=== PATIENT | female | born 1935 | race African-American/Black ===

== ENCOUNTER 2017-05-20 07:11 | Inpatient (IN) | payer OTHER, MEDICAID ==
[~2017-05-20] VITALS: Ht 162.6 cm; Wt 45.4 kg
[~2017-05-20 07:11] MED LIST: ASPI-1158 PO; METF500T4 PO
[2017-05-20 08:25] LABS: BASOPHILS % 0.6 % (0.0-2.0); EOSINOPHILS % 0.1 % (0.0-5.0); HEMATOCRIT. 30.5 % (36.0-48.0); HEMOGLOBIN. 9.8 g/dL (12.0-16.0); LYMPHOCYTES % 17.8 % (20.0-50.0); MEAN CORPUSCULAR HEMOGLOBIN 27.7 pg (28.0-32.0); MEAN CORPUSCULAR VOLUME 86.6 fL (81.0-99.0); MEAN PLATELET VOLUME 7.3 fl (7.4-10.4); MONOCYTES % 7.9 % (2.0-8.0); NEUTROPHILS % 73.6 % (40.0-76.0); PLATELET 250 x1000/uL (130-400); RED BLOOD CELL COUNT 3.53 mill/uL (4.2-5.4); RED CELL DISTRIBUTION WIDTH 16.2 % (11.6-14.6)
[2017-05-20 08:35] LABS: CARBON DIOXIDE 22 mEq/L (21-32); CHLORIDE 115 mEq/L (98-107)
[2017-05-20 08:41] LABS: TROPONIN I < 0.02 ng/mL (0.00-0.04)
[2017-05-20] MEDS ORDERED: HYDROCODONE/ACETAMINOPHEN 5/325MG TABLET PO PRN (12:15)
[2017-05-20] MEDS ORDERED: IPRATROPIUM/ALBUTEROL 0.5-3(2.5)MG/3ML NEB INH PRN (12:15)
[2017-05-20] MEDS ORDERED: ONDANSETRON HCL 4MG/2ML VIAL IV PRN (12:15)
[2017-05-20] MEDS ORDERED: ACETAMINOPHEN 325MG TABLET PO PRN (12:15)
[2017-05-20] MEDS ORDERED: CLONIDINE 0.1MG TABLET PO PRN (12:15)
[2017-05-20] MEDS ORDERED: HYDRALAZINE 20MG/ML VIAL IV PRN (16:00)
[2017-05-20] MEDS: AMLODIPINE 2.5MG TABLET PO SCH ×2 (17:25→21:01)
[2017-05-20] MEDS: CLONIDINE 0.2MG TABLET PO PRN (21:02)
[2017-05-21 06:17] LABS: BASOPHILS % 0.6 % (0.0-2.0); HEMATOCRIT. 26.9 % (36.0-48.0); HEMOGLOBIN. 8.8 g/dL (12.0-16.0); LYMPHOCYTES % 22.4 % (20.0-50.0); MEAN CORPUSCULAR HEMOGLOBIN 27.5 pg (28.0-32.0); MEAN CORPUSCULAR VOLUME 84.2 fL (81.0-99.0); MEAN PLATELET VOLUME 6.9 fl (7.4-10.4); MONOCYTES % 6.2 % (2.0-8.0); NEUTROPHILS % 69.8 % (40.0-76.0); PLATELET 209 x1000/uL (130-400); RED BLOOD CELL COUNT 3.19 mill/uL (4.2-5.4); RED CELL DISTRIBUTION WIDTH 15.6 % (11.6-14.6)
[2017-05-21 07:01] LABS: CARBON DIOXIDE 21 mEq/L (21-32); CHLORIDE 113 mEq/L (98-107); HDL CHOLESTEROL 49 mg/dL (40-59); LDL CHOLESTEROL 102 mg/dL (5-100)
[2017-05-21] MEDS ORDERED: HEPARIN 5000 UNITS/ML VIAL IV PRN ×2 (08:00)
[2017-05-21] MEDS ORDERED: HEPARIN 25,000 UNITS PREMIX 500 ML IV PRN (08:00)
[2017-05-21] MEDS ORDERED: DEXTROSE 50% WATER 50ML SYRINGE IV PRN ×2 (08:30→12:45)
[2017-05-21 08:58] LABS: INR 1.1; PARTIAL THROMBOPLASTIN TIME 26.2 sec (24.0-34.0); PROTHROMBIN TIME 11.1 sec
[2017-05-21] MEDS ORDERED: INSULIN LISPRO 100 UNITS/ML SUBCUT SCH (09:00)
[2017-05-21] MEDS: AMLODIPINE 2.5MG TABLET PO SCH ×2 (09:09→20:51)
[2017-05-21] MEDS: LEVOTHYROXINE SODIUM 75MCG TABLET PO SCH (09:58)
[2017-05-21] MEDS ORDERED: HEPARIN 5000 UNITS/ML VIAL IV SCH (10:00)
[2017-05-21] MEDS: HEPARIN 25,000 UNITS PREMIX 500 ML IV PRN (11:24)
[2017-05-21] MEDS: BLOOD SUGAR DIAGNOSTIC STRIP TEST SCH ×3 (12:39→21:00)
[2017-05-21] MEDS: INSULIN LISPRO 100 UNITS/ML SUBCUT SCH ×3 (12:56→21:00)
[2017-05-21 16:05] LABS: BG BASE EXCESS -3.2 mmol/L (-2.0-2.0); BG CARBOXYHEMOGLOBIN 0.6 % (0.5-1.5); BG DEOXYHEMOGLOBIN 5.4 % (0.0-5.0); BG FRACTION INSPIRED OXYGEN 21; BG HCO3 ACT 20.7 mmol/L (22.0-26.0); BG METHEMOGLOBIN 0.3 % (0.0-1.5); BG OXYGEN SATURATION 94.6 % (92.0-98.5); BG OXYHEMOGLOBIN 93.7 % (94.0-97.0); BG PCO2 32.9 mmHg (35.0-45.0); BG PH 7.416 (7.350-7.450); BG SAMPLE SITE RIGHT BRACHIAL; BG TOTAL HEMOGLOBIN 10.3 g/dL (12.0-18.0); BG VENT MODE ROOM AIR
[2017-05-21] MEDS ORDERED: BLOOD SUGAR DIAGNOSTIC STRIP TEST SCH (17:10)
[2017-05-22] MEDS: LEVOTHYROXINE SODIUM 75MCG TABLET PO SCH (06:38)
[2017-05-22] MEDS: INSULIN LISPRO 100 UNITS/ML SUBCUT SCH ×4 (06:43→20:41)
[2017-05-22] MEDS: BLOOD SUGAR DIAGNOSTIC STRIP TEST SCH ×4 (06:43→20:42)
[2017-05-22] MEDS: AMLODIPINE 2.5MG TABLET PO SCH ×2 (08:26→20:35)
[2017-05-22] MEDS: HEPARIN 25,000 UNITS PREMIX 500 ML IV PRN (08:30)
[2017-05-22] MEDS ORDERED: POTASSIUM CHLORIDE 20MEQ TABLET SR PO SCH (10:30)
[2017-05-22 11:58] LABS: HEMATOCRIT 28.7 % (36.0-48.0); HEMOGLOBIN 9.3 g/dL (12.0-16.0); MEAN CORPUSCULAR HEMOGLOBIN 27.3 pg (28.0-32.0); MEAN CORPUSCULAR VOLUME 84.5 fL (81.0-99.0); PLATELET 234 x1000/uL (130-400); RED CELL DISTRIBUTION WIDTH 15.9 % (11.6-14.6)
[2017-05-22] MEDS ORDERED: MAGNESIUM 2 G PREMIX 50 ML IV SCH (12:00)
[2017-05-22] MEDS: ENOXAPARIN 60MG/0.6ML SYR SUBCUT SCH (12:03)
[2017-05-23] MEDS: LEVOTHYROXINE SODIUM 75MCG TABLET PO SCH (06:26)
[2017-05-23] MEDS: BLOOD SUGAR DIAGNOSTIC STRIP TEST SCH ×4 (06:28→21:00)
[2017-05-23] MEDS: INSULIN LISPRO 100 UNITS/ML SUBCUT SCH ×4 (06:46→22:25)
[2017-05-23 07:37] LABS: BASOPHILS % 0.3 % (0.0-2.0); EOSINOPHILS % 0.7 % (0.0-5.0); HEMATOCRIT. 28.9 % (36.0-48.0); HEMOGLOBIN. 9.4 g/dL (12.0-16.0); LYMPHOCYTES % 20.1 % (20.0-50.0); MEAN CORPUSCULAR HEMOGLOBIN 27.3 pg (28.0-32.0); MEAN CORPUSCULAR VOLUME 83.6 fL (81.0-99.0); MEAN PLATELET VOLUME 7.4 fl (7.4-10.4); MONOCYTES % 9.6 % (2.0-8.0); NEUTROPHILS % 69.3 % (40.0-76.0); PLATELET 224 x1000/uL (130-400); RED BLOOD CELL COUNT 3.45 mill/uL (4.2-5.4); RED CELL DISTRIBUTION WIDTH 15.6 % (11.6-14.6)
[2017-05-23 08:38] LABS: CARBON DIOXIDE 25 mEq/L (21-32); CHLORIDE 109 mEq/L (98-107)
[2017-05-23] MEDS: AMLODIPINE 2.5MG TABLET PO SCH ×2 (08:57→21:00)
[2017-05-23] MEDS: ENOXAPARIN 60MG/0.6ML SYR SUBCUT SCH (08:57)
[2017-05-23 09:06] LABS: ANTI-NUCLEAR ANTIBODIES DIRECT Negative (Negative); COMPLEMENT C3 89 mg/dL (82-167)
[2017-05-23 09:31] LABS: TOTAL IRON BINDING CAPACITY 180 ug/dL (250-450)
[2017-05-23 10:20] LABS: FOLIC ACID (FOLATE) SERUM 2.8 ng/mL (>5.38)
[2017-05-23] MEDS: CEFTRIAXONE 1 G PREMIX 50 ML IV SCH (17:23)
[2017-05-23 17:32] LABS: CLARITY URINE CLOUDY (CLEAR); COLOR URINE YELLOW (YELLOW); KETONES URINE NEGATIVE (NEGATIVE); LEUKOCYTE ESTERASE URINE 3+ (NEGATIVE); NITRITE URINE NEGATIVE (NEGATIVE); OCCULT BLOOD URINE 1+ (NEGATIVE); PH URINE 6.5 (4.5-8.0); PROTEIN URINE 1+ (NEGATIVE); UROBILINOGEN URINE 0.2 E.U./dL (0.2-1.0)
[2017-05-24 06:05] LABS: BASOPHILS % 0.3 % (0.0-2.0); EOSINOPHILS % 0.7 % (0.0-5.0); HEMOGLOBIN. 9.1 g/dL (12.0-16.0); LYMPHOCYTES % 21.6 % (20.0-50.0); MEAN CORPUSCULAR HEMOGLOBIN 27.4 pg (28.0-32.0); MEAN CORPUSCULAR VOLUME 84.5 fL (81.0-99.0); MEAN PLATELET VOLUME 7.1 fl (7.4-10.4); MONOCYTES % 9.3 % (2.0-8.0); NEUTROPHILS % 68.1 % (40.0-76.0); PLATELET 222 x1000/uL (130-400); RED BLOOD CELL COUNT 3.31 mill/uL (4.2-5.4); RED CELL DISTRIBUTION WIDTH 16.1 % (11.6-14.6)
[2017-05-24] MEDS: BLOOD SUGAR DIAGNOSTIC STRIP TEST SCH ×4 (06:51→20:28)
[2017-05-24] MEDS: LEVOTHYROXINE SODIUM 75MCG TABLET PO SCH (06:51)
[2017-05-24] MEDS: INSULIN LISPRO 100 UNITS/ML SUBCUT SCH ×4 (07:03→21:41)
[2017-05-24] MEDS: ENOXAPARIN 60MG/0.6ML SYR SUBCUT SCH (08:35)
[2017-05-24] MEDS: CLONIDINE 0.2MG TABLET PO PRN (08:38)
[2017-05-24] MEDS: AMLODIPINE 2.5MG TABLET PO SCH ×2 (08:38→20:28)
[2017-05-24] MEDS ORDERED: SODIUM POLYSTYRENE SULFONATE 15 G/60 ML BOT PO SCH (11:00)
[2017-05-24 12:21] LABS: ANTI-MYELOPEROXIDASE AB < 9.0 U/mL (0.0-9.0); ANTI-PROTEINASE 3 ABS < 3.5 U/mL (0.0-3.5)
[2017-05-24] MEDS: HYDRALAZINE HCL 25MG TABLET PO SCH ×2 (13:00→22:00)
[2017-05-24] MEDS: CLONIDINE 0.1MG TABLET PO PRN (17:14)
[2017-05-24] MEDS: FOLIC ACID 1MG TABLET PO SCH (17:14)
[2017-05-24] MEDS: CEFTRIAXONE 1 G PREMIX 50 ML IV SCH (17:14)
[2017-05-25] MEDS: HYDRALAZINE HCL 25MG TABLET PO SCH ×3 (05:40→21:33)
[2017-05-25] MEDS: BLOOD SUGAR DIAGNOSTIC STRIP TEST SCH ×4 (05:53→21:33)
[2017-05-25] MEDS: INSULIN LISPRO 100 UNITS/ML SUBCUT SCH ×4 (05:54→21:00)
[2017-05-25 08:20] LABS: BASOPHILS % 0.8 % (0.0-2.0); EOSINOPHILS % 0.9 % (0.0-5.0); HEMATOCRIT. 24.4 % (36.0-48.0); HEMOGLOBIN. 8.1 g/dL (12.0-16.0); MEAN CORPUSCULAR HEMOGLOBIN 27.7 pg (28.0-32.0); MEAN CORPUSCULAR VOLUME 83.4 fL (81.0-99.0); MONOCYTES % 8.3 % (2.0-8.0); PLATELET 204 x1000/uL (130-400); RED BLOOD CELL COUNT 2.93 mill/uL (4.2-5.4); RED CELL DISTRIBUTION WIDTH 15.8 % (11.6-14.6)
[2017-05-25] MEDS: LEVOTHYROXINE SODIUM 75MCG TABLET PO SCH (08:29)
[2017-05-25] MEDS: ENOXAPARIN 60MG/0.6ML SYR SUBCUT SCH ×2 (08:29→08:35)
[2017-05-25] MEDS: AMLODIPINE 2.5MG TABLET PO SCH ×2 (08:29→21:33)
[2017-05-25 08:48] LABS: PHOSPHORUS 3.1 mg/dL (2.5-4.9)
[2017-05-25] MEDS: CEFTRIAXONE 1 G PREMIX 50 ML IV SCH (17:14)
[2017-05-25] MEDS: FOLIC ACID 1MG TABLET PO SCH (17:14)
[2017-05-25] MEDS ORDERED: WARFARIN SODIUM 5MG TABLET PO NR (18:00)
[2017-05-26] MEDS: HYDRALAZINE HCL 25MG TABLET PO SCH ×3 (06:14→21:02)
[2017-05-26] MEDS: LEVOTHYROXINE SODIUM 75MCG TABLET PO SCH (06:15)
[2017-05-26] MEDS: BLOOD SUGAR DIAGNOSTIC STRIP TEST SCH ×4 (06:15→20:25)
[2017-05-26 07:04] LABS: INR 0.9; PROTHROMBIN TIME 9.8 sec
[2017-05-26] MEDS: INSULIN LISPRO 100 UNITS/ML SUBCUT SCH ×4 (07:21→21:01)
[2017-05-26 07:36] LABS: HEMATOCRIT. 27.3 % (36.0-48.0); HEMOGLOBIN. 8.9 g/dL (12.0-16.0); MEAN CORPUSCULAR HEMOGLOBIN 27.6 pg (28.0-32.0); MEAN CORPUSCULAR VOLUME 84.4 fL (81.0-99.0); PLATELET 241 x1000/uL (130-400); RED BLOOD CELL COUNT 3.24 mill/uL (4.2-5.4); RED CELL DISTRIBUTION WIDTH 16.1 % (11.6-14.6)
[2017-05-26] MEDS: AMLODIPINE 2.5MG TABLET PO SCH ×2 (08:27→21:02)
[2017-05-26] MEDS: DIPHENHYDRAMINE 50MG/ML VIAL IV PRN (08:28)
[2017-05-26] MEDS: ENOXAPARIN 60MG/0.6ML SYR SUBCUT SCH (08:28)
[2017-05-26 11:31] LABS: PLATELET ESTIMATE NORMAL
[2017-05-26 13:09] LABS: ANTI-CARDIOLIPIN AB IGM < 9 MPL U/mL (0-12)
[2017-05-26] MEDS: FOLIC ACID 1MG TABLET PO SCH (17:04)
[2017-05-26] MEDS: CEFTRIAXONE 1 G PREMIX 50 ML IV SCH (17:04)
[2017-05-26] MEDS ORDERED: WARFARIN SODIUM 5MG TABLET PO NR (18:00)
[2017-05-27] MEDS: BLOOD SUGAR DIAGNOSTIC STRIP TEST SCH ×4 (05:43→21:35)
[2017-05-27] MEDS: INSULIN LISPRO 100 UNITS/ML SUBCUT SCH ×4 (06:13→21:37)
[2017-05-27] MEDS: HYDRALAZINE HCL 25MG TABLET PO SCH ×3 (06:14→21:41)
[2017-05-27] MEDS: LEVOTHYROXINE SODIUM 75MCG TABLET PO SCH (06:14)
[2017-05-27 08:50] LABS: BASOPHILS % 0.6 % (0.0-2.0); EOSINOPHILS % 0.8 % (0.0-5.0); HEMATOCRIT. 29.7 % (36.0-48.0); HEMOGLOBIN. 9.6 g/dL (12.0-16.0); LYMPHOCYTES % 22.2 % (20.0-50.0); MEAN CORPUSCULAR HEMOGLOBIN 27.4 pg (28.0-32.0); MEAN CORPUSCULAR VOLUME 84.8 fL (81.0-99.0); MEAN PLATELET VOLUME 7.8 fl (7.4-10.4); MONOCYTES % 8.2 % (2.0-8.0); NEUTROPHILS % 68.2 % (40.0-76.0); PLATELET 194 x1000/uL (130-400); RED CELL DISTRIBUTION WIDTH 16.3 % (11.6-14.6)
[2017-05-27 08:58] LABS: PROTHROMBIN TIME 10.6 sec
[2017-05-27] MEDS: ENOXAPARIN 60MG/0.6ML SYR SUBCUT SCH (09:30)
[2017-05-27] MEDS: AMLODIPINE 5MG TABLET PO SCH ×2 (09:37→21:36)
[2017-05-27 11:18] LABS: ATYPICAL P-ANCA <1:20 titer (Neg:<1:20); CYTOPLASMIC C-ANCA <1:20 titer (Neg:<1:20); PERINUCLEAR P-ANCA <1:20 titer (Neg:<1:20)
[2017-05-27] MEDS: CEFTRIAXONE 1 G PREMIX 50 ML IV SCH (17:35)
[2017-05-27] MEDS: FOLIC ACID 1MG TABLET PO SCH (17:41)
[2017-05-27] MEDS ORDERED: WARFARIN SODIUM 3MG TABLET PO SCH (18:00)
[2017-05-28] MEDS: HYDRALAZINE HCL 25MG TABLET PO SCH ×3 (06:22→22:59)
[2017-05-28] MEDS: LEVOTHYROXINE SODIUM 75MCG TABLET PO SCH (06:22)
[2017-05-28] MEDS: BLOOD SUGAR DIAGNOSTIC STRIP TEST SCH ×4 (06:24→21:43)
[2017-05-28] MEDS: INSULIN LISPRO 100 UNITS/ML SUBCUT SCH ×5 (06:25→21:50)
[2017-05-28 07:33] LABS: INR 1.1; PROTHROMBIN TIME 11.6 sec
[2017-05-28] MEDS: AMLODIPINE 5MG TABLET PO SCH ×2 (08:09→21:38)
[2017-05-28] MEDS: ENOXAPARIN 60MG/0.6ML SYR SUBCUT SCH (08:10)
[2017-05-28 08:27] LABS: BASOPHILS % 0.6 % (0.0-2.0); HEMATOCRIT. 26.1 % (36.0-48.0); HEMOGLOBIN. 8.6 g/dL (12.0-16.0); LYMPHOCYTES % 21.5 % (20.0-50.0); MEAN CORPUSCULAR HEMOGLOBIN 27.8 pg (28.0-32.0); MEAN CORPUSCULAR VOLUME 84.6 fL (81.0-99.0); MEAN PLATELET VOLUME 7.1 fl (7.4-10.4); MONOCYTES % 10.2 % (2.0-8.0); NEUTROPHILS % 66.7 % (40.0-76.0); PLATELET 245 x1000/uL (130-400); RED BLOOD CELL COUNT 3.09 mill/uL (4.2-5.4); RED CELL DISTRIBUTION WIDTH 16.3 % (11.6-14.6)
[2017-05-28 14:19] LABS: HGB A 98.2 % (94.0-98.0); HGB A2 1.8 % (0.7-3.1); HGB SOLUBILITY Negative (Negative)
[2017-05-28] MEDS: CEFTRIAXONE 1 G PREMIX 50 ML IV SCH (15:48)
[2017-05-28] MEDS ORDERED: WARFARIN SODIUM 3MG TABLET PO SCH (18:00)
[2017-05-28] MEDS: FOLIC ACID 1MG TABLET PO SCH (18:57)
[2017-05-29] MEDS: HYDRALAZINE HCL 25MG TABLET PO SCH ×3 (05:20→21:40)
[2017-05-29] MEDS: BLOOD SUGAR DIAGNOSTIC STRIP TEST SCH ×4 (06:24→20:47)
[2017-05-29] MEDS: INSULIN LISPRO 100 UNITS/ML SUBCUT SCH ×4 (06:24→20:53)
[2017-05-29] MEDS: LEVOTHYROXINE SODIUM 75MCG TABLET PO SCH (06:48)
[2017-05-29 07:03] LABS: INR 1.2; PROTHROMBIN TIME 12.8 sec
[2017-05-29 07:47] LABS: BASOPHILS % 0.3 % (0.0-2.0); EOSINOPHILS % 1.2 % (0.0-5.0); HEMATOCRIT. 27.6 % (36.0-48.0); HEMOGLOBIN. 9.1 g/dL (12.0-16.0); LYMPHOCYTES % 23.1 % (20.0-50.0); MEAN CORPUSCULAR VOLUME 85.1 fL (81.0-99.0); MEAN PLATELET VOLUME 6.8 fl (7.4-10.4); MONOCYTES % 9.4 % (2.0-8.0); PLATELET 251 x1000/uL (130-400); RED BLOOD CELL COUNT 3.24 mill/uL (4.2-5.4); RED CELL DISTRIBUTION WIDTH 16.7 % (11.6-14.6)
[2017-05-29] MEDS: AMLODIPINE 5MG TABLET PO SCH ×2 (08:44→20:46)
[2017-05-29] MEDS: ENOXAPARIN 60MG/0.6ML SYR SUBCUT SCH (08:45)
[2017-05-29] MEDS: CEFTRIAXONE 1 G PREMIX 50 ML IV SCH (15:08)
[2017-05-29] MEDS: FOLIC ACID 1MG TABLET PO SCH (16:52)
[2017-05-29] MEDS ORDERED: WARFARIN SODIUM 3MG TABLET PO SCH (18:00)
[2017-05-29] MEDS: CLONIDINE 0.1MG TABLET PO PRN (23:15)
[2017-05-30 05:46] LABS: INR 1.4; PROTHROMBIN TIME 14.7 sec
[2017-05-30] MEDS: LEVOTHYROXINE SODIUM 75MCG TABLET PO SCH (06:22)
[2017-05-30] MEDS: BLOOD SUGAR DIAGNOSTIC STRIP TEST SCH ×4 (06:23→21:32)
[2017-05-30] MEDS: HYDRALAZINE HCL 25MG TABLET PO SCH ×3 (06:23→22:51)
[2017-05-30] MEDS: INSULIN LISPRO 100 UNITS/ML SUBCUT SCH ×4 (06:36→21:00)
[2017-05-30] MEDS: ENOXAPARIN 60MG/0.6ML SYR SUBCUT SCH (08:25)
[2017-05-30] MEDS: AMLODIPINE 5MG TABLET PO SCH ×2 (08:25→21:00)
[2017-05-30] MEDS: CEFTRIAXONE 1 G PREMIX 50 ML IV SCH (15:14)
[2017-05-30] MEDS: FOLIC ACID 1MG TABLET PO SCH (17:17)
[2017-05-30] MEDS ORDERED: WARFARIN SODIUM 3MG TABLET PO SCH (18:00)
[2017-05-31] MEDS: LEVOTHYROXINE SODIUM 75MCG TABLET PO SCH (06:19)
[2017-05-31] MEDS: BLOOD SUGAR DIAGNOSTIC STRIP TEST SCH ×4 (06:20→20:36)
[2017-05-31] MEDS: HYDRALAZINE HCL 25MG TABLET PO SCH ×3 (06:20→20:51)
[2017-05-31] MEDS: INSULIN LISPRO 100 UNITS/ML SUBCUT SCH ×4 (06:49→20:53)
[2017-05-31 07:02] LABS: BASOPHILS % 0.8 % (0.0-2.0); EOSINOPHILS % 1.2 % (0.0-5.0); HEMATOCRIT. 27.1 % (36.0-48.0); HEMOGLOBIN. 8.8 g/dL (12.0-16.0); LYMPHOCYTES % 22.8 % (20.0-50.0); MEAN CORPUSCULAR HEMOGLOBIN 27.5 pg (28.0-32.0); MEAN CORPUSCULAR VOLUME 84.8 fL (81.0-99.0); MEAN PLATELET VOLUME 6.5 fl (7.4-10.4); MONOCYTES % 8.8 % (2.0-8.0); NEUTROPHILS % 66.4 % (40.0-76.0); PLATELET 240 x1000/uL (130-400); RED BLOOD CELL COUNT 3.19 mill/uL (4.2-5.4); RED CELL DISTRIBUTION WIDTH 17.1 % (11.6-14.6)
[2017-05-31 07:03] LABS: INR 1.5
[2017-05-31 07:11] LABS: CLARITY URINE CLEAR (CLEAR); COLOR URINE YELLOW (YELLOW); KETONES URINE NEGATIVE (NEGATIVE); LEUKOCYTE ESTERASE URINE NEGATIVE (NEGATIVE); NITRITE URINE NEGATIVE (NEGATIVE); OCCULT BLOOD URINE NEGATIVE (NEGATIVE); PROTEIN URINE 1+ (NEGATIVE); SPECIFIC GRAVITY URINE 1.011 (1.005-1.030); UROBILINOGEN URINE 0.2 E.U./dL (0.2-1.0)
[2017-05-31] MEDS: ENOXAPARIN 60MG/0.6ML SYR SUBCUT SCH (09:05)
[2017-05-31] MEDS: AMLODIPINE 5MG TABLET PO SCH ×2 (09:05→20:50)
[2017-05-31] MEDS: FOLIC ACID 1MG TABLET PO SCH (17:45)
[2017-05-31] MEDS: WARFARIN SODIUM 7.5MG TABLET PO NR ×2 (17:45→20:51)
[2017-06-01 05:23] LABS: INR 1.6
[2017-06-01] MEDS: BLOOD SUGAR DIAGNOSTIC STRIP TEST SCH ×4 (06:12→21:24)
[2017-06-01] MEDS: HYDRALAZINE HCL 25MG TABLET PO SCH ×3 (06:19→21:25)
[2017-06-01] MEDS: LEVOTHYROXINE SODIUM 75MCG TABLET PO SCH (06:19)
[2017-06-01] MEDS: INSULIN LISPRO 100 UNITS/ML SUBCUT SCH ×4 (06:21→21:00)
[2017-06-01] MEDS: ENOXAPARIN 60MG/0.6ML SYR SUBCUT SCH (09:16)
[2017-06-01] MEDS: AMLODIPINE 5MG TABLET PO SCH ×2 (09:17→21:26)
[2017-06-01] MEDS: FOLIC ACID 1MG TABLET PO SCH (17:29)
[2017-06-01] MEDS ORDERED: WARFARIN SODIUM 7.5MG TABLET PO SCH (18:00)
[2017-06-02] MEDS: BLOOD SUGAR DIAGNOSTIC STRIP TEST SCH ×4 (06:17→20:37)
[2017-06-02] MEDS: HYDRALAZINE HCL 25MG TABLET PO SCH ×3 (06:17→21:40)
[2017-06-02] MEDS: LEVOTHYROXINE SODIUM 75MCG TABLET PO SCH (06:17)
[2017-06-02 07:47] LABS: INR 1.8; PROTHROMBIN TIME 18.6 sec
[2017-06-02 07:54] LABS: BASOPHILS % 0.6 % (0.0-2.0); EOSINOPHILS % 1.4 % (0.0-5.0); HEMATOCRIT. 28.5 % (36.0-48.0); HEMOGLOBIN. 9.3 g/dL (12.0-16.0); LYMPHOCYTES % 25.4 % (20.0-50.0); MEAN CORPUSCULAR HEMOGLOBIN 27.3 pg (28.0-32.0); MEAN CORPUSCULAR VOLUME 84.2 fL (81.0-99.0); MEAN PLATELET VOLUME 6.7 fl (7.4-10.4); MONOCYTES % 8.3 % (2.0-8.0); NEUTROPHILS % 64.3 % (40.0-76.0); PLATELET 254 x1000/uL (130-400); RED BLOOD CELL COUNT 3.39 mill/uL (4.2-5.4); RED CELL DISTRIBUTION WIDTH 17.2 % (11.6-14.6)
[2017-06-02] MEDS: AMLODIPINE 5MG TABLET PO SCH ×2 (09:38→21:40)
[2017-06-02] MEDS: ENOXAPARIN 60MG/0.6ML SYR SUBCUT SCH (09:38)
[2017-06-02] MEDS: INSULIN LISPRO 100 UNITS/ML SUBCUT SCH ×4 (12:30→20:37)
[2017-06-02] MEDS: FOLIC ACID 1MG TABLET PO SCH (17:53)
[2017-06-02] MEDS ORDERED: WARFARIN SODIUM 7.5MG TABLET PO SCH (18:00)
[2017-06-03] MEDS: HYDRALAZINE HCL 25MG TABLET PO SCH ×4 (06:00→21:59)
[2017-06-03] MEDS: LEVOTHYROXINE SODIUM 75MCG TABLET PO SCH ×2 (06:23→06:28)
[2017-06-03] MEDS: BLOOD SUGAR DIAGNOSTIC STRIP TEST SCH ×4 (06:23→20:39)
[2017-06-03] MEDS: INSULIN LISPRO 100 UNITS/ML SUBCUT SCH ×4 (06:27→20:42)
[2017-06-03 06:35] LABS: BASOPHILS % 0.7 % (0.0-2.0); EOSINOPHILS % 1.1 % (0.0-5.0); HEMATOCRIT. 26.7 % (36.0-48.0); HEMOGLOBIN. 8.7 g/dL (12.0-16.0); LYMPHOCYTES % 25.6 % (20.0-50.0); MEAN CORPUSCULAR HEMOGLOBIN 27.6 pg (28.0-32.0); MEAN CORPUSCULAR VOLUME 84.7 fL (81.0-99.0); MEAN PLATELET VOLUME 6.7 fl (7.4-10.4); MONOCYTES % 7.9 % (2.0-8.0); NEUTROPHILS % 64.7 % (40.0-76.0); PLATELET 241 x1000/uL (130-400); RED BLOOD CELL COUNT 3.15 mill/uL (4.2-5.4)
[2017-06-03 06:43] LABS: INR 2.1; PROTHROMBIN TIME 21.7 sec
[2017-06-03] MEDS: ENOXAPARIN 60MG/0.6ML SYR SUBCUT SCH (08:37)
[2017-06-03] MEDS: AMLODIPINE 5MG TABLET PO SCH ×2 (08:38→20:39)
[2017-06-03] MEDS ORDERED: WARFARIN SODIUM 7.5MG TABLET PO NR (18:00)
[2017-06-03] MEDS: FOLIC ACID 1MG TABLET PO SCH (18:05)
[2017-06-04] MEDS: LEVOTHYROXINE SODIUM 75MCG TABLET PO SCH (06:11)
[2017-06-04] MEDS: BLOOD SUGAR DIAGNOSTIC STRIP TEST SCH ×4 (06:11→20:46)
[2017-06-04] MEDS: HYDRALAZINE HCL 25MG TABLET PO SCH ×3 (06:11→22:00)
[2017-06-04] MEDS: INSULIN LISPRO 100 UNITS/ML SUBCUT SCH ×4 (06:19→20:52)
[2017-06-04 06:29] LABS: INR 2.3; PROTHROMBIN TIME 23.8 sec
[2017-06-04] MEDS: CLONIDINE 0.1MG TABLET PO PRN (10:07)
[2017-06-04] MEDS: AMLODIPINE 5MG TABLET PO SCH ×2 (10:07→20:46)
[2017-06-04] MEDS: ENOXAPARIN 60MG/0.6ML SYR SUBCUT SCH (10:08)
[2017-06-04] MEDS: DIPHENHYDRAMINE 50MG/ML VIAL IV PRN (10:10)
[2017-06-04 11:48] LABS: BASOPHILS % 0.9 % (0.0-2.0); EOSINOPHILS % 1.2 % (0.0-5.0); HEMATOCRIT. 27.8 % (36.0-48.0); LYMPHOCYTES % 22.6 % (20.0-50.0); MEAN CORPUSCULAR HEMOGLOBIN 27.6 pg (28.0-32.0); MEAN CORPUSCULAR VOLUME 85.6 fL (81.0-99.0); MEAN PLATELET VOLUME 7.2 fl (7.4-10.4); MONOCYTES % 7.7 % (2.0-8.0); NEUTROPHILS % 67.6 % (40.0-76.0); PLATELET 246 x1000/uL (130-400); RED BLOOD CELL COUNT 3.25 mill/uL (4.2-5.4); RED CELL DISTRIBUTION WIDTH 17.7 % (11.6-14.6)
[2017-06-04] MEDS: FOLIC ACID 1MG TABLET PO SCH (17:23)
[2017-06-04] MEDS ORDERED: WARFARIN SODIUM 7.5MG TABLET PO SCH (18:00)
[2017-06-05] MEDS: HYDRALAZINE HCL 25MG TABLET PO SCH ×2 (06:39→13:08)
[2017-06-05] MEDS: LEVOTHYROXINE SODIUM 75MCG TABLET PO SCH (06:39)
[2017-06-05] MEDS: BLOOD SUGAR DIAGNOSTIC STRIP TEST SCH ×2 (06:39→12:46)
[2017-06-05 06:42] LABS: INR 2.5; PROTHROMBIN TIME 25.7 sec
[2017-06-05] MEDS: INSULIN LISPRO 100 UNITS/ML SUBCUT SCH ×2 (06:43→12:40)
[2017-06-05 07:37] LABS: BASOPHILS % 0.8 % (0.0-2.0); EOSINOPHILS % 1.2 % (0.0-5.0); HEMATOCRIT. 26.3 % (36.0-48.0); HEMOGLOBIN. 8.6 g/dL (12.0-16.0); LYMPHOCYTES % 24.6 % (20.0-50.0); MEAN CORPUSCULAR HEMOGLOBIN 28.1 pg (28.0-32.0); MEAN CORPUSCULAR VOLUME 85.5 fL (81.0-99.0); MEAN PLATELET VOLUME 7.4 fl (7.4-10.4); MONOCYTES % 7.4 % (2.0-8.0); PLATELET 245 x1000/uL (130-400); RED BLOOD CELL COUNT 3.07 mill/uL (4.2-5.4); RED CELL DISTRIBUTION WIDTH 17.2 % (11.6-14.6)
[2017-06-05] MEDS: AMLODIPINE 5MG TABLET PO SCH (09:36)
[2017-06-05 12:34] VITALS: BP 142/90
[2017-06-05] MEDS ORDERED: WARFARIN SODIUM 3MG TABLET PO SCH (18:00)
== END 2017-06-05 15:30 | disposition home health service (06) | DRG 70 ==
LOC: ER 07:26 → 8WST 09:25 → ENRESERV 11:39
PROVIDERS: ADMIT Internal Medicine; ATTEND Internal Medicine
DX: G93.40 Encephalopathy, unspecified (principal); I50.33 Acute on chronic diastolic (congestive) heart failure; I26.99 Other pulmonary embolism without acute cor pulmonale; I13.0 Hypertensive heart and chronic kidney disease with heart failure and stage 1 through stage 4 chronic kidney disease, or unspecified chronic kidney disease; I82.412 Acute embolism and thrombosis of left femoral vein; N17.9 Acute kidney failure, unspecified; N18.4 Chronic kidney disease, stage 4 (severe); E87.1 Hypo-osmolality and hyponatremia; E46 Unspecified protein-calorie malnutrition; N39.0 Urinary tract infection, site not specified; Z68.1 Body mass index [BMI] 19.9 or less, adult; E03.9 Hypothyroidism, unspecified; E87.6 Hypokalemia; B96.20 Unspecified Escherichia coli [E. coli] as the cause of diseases classified elsewhere; B96.89 Other specified bacterial agents as the cause of diseases classified elsewhere; Z60.2 Problems related to living alone; D63.8 Anemia in other chronic diseases classified elsewhere; E11.22 Type 2 diabetes mellitus with diabetic chronic kidney disease; E83.42 Hypomagnesemia; I27.2 Other secondary pulmonary hypertension; Z79.84 Long term (current) use of oral hypoglycemic drugs; Z79.82 Long term (current) use of aspirin
CPT/HCPCS: 36415; 36600; 70450; 71010; 76770; 78580; 80048; 80053; 80061; 81001; 81403; 81407; 81479; 82270; 82375; 82607; 82728; 82746; 82805; 82962; 83021; 83036; 83520; 83540; 83550; 83735; 83880; 84100; 84443; 84484; 85007; 85025; 85027; 85044; 85379; 85610; 85651; 85660; 85730; 86038; 86147; 86160; 86256; 87040; 87077; 87086; 87186; 93005; 93306; 93970; 96374; 97116; 97162; 97530; 99285; A6261; C1893; J0360; J0696; J1200; J1644; J1650; J1815; J2405; J3475; J7040; J7050; J7620; A4315

== ENCOUNTER 2017-07-12 07:34 | Inpatient (IN) | payer OTHER, MEDICAID ==
[~2017-07-12] VITALS: Ht 162.6 cm; Wt 78.9 kg
[2017-07-12] MEDS ORDERED: SODIUM CHLORIDE 0.9% 1,000 ML IV ONE (08:00)
[2017-07-12 08:24] LABS: BASOPHILS % 0.6 % (0.0-2.0); EOSINOPHILS % 0.1 % (0.0-5.0); HEMATOCRIT. 35.6 % (36.0-48.0); HEMOGLOBIN. 11.4 g/dL (12.0-16.0); LYMPHOCYTES % 12.6 % (20.0-50.0); MEAN CORPUSCULAR HEMOGLOBIN 27.1 pg (28.0-32.0); MEAN CORPUSCULAR VOLUME 84.5 fL (81.0-99.0); MEAN PLATELET VOLUME 7.2 fl (7.4-10.4); MONOCYTES % 5.1 % (2.0-8.0); NEUTROPHILS % 81.6 % (40.0-76.0); PLATELET 286 x1000/uL (130-400); RED BLOOD CELL COUNT 4.21 mill/uL (4.2-5.4); RED CELL DISTRIBUTION WIDTH 15.9 % (11.6-14.6)
[2017-07-12 08:33] LABS: PARTIAL THROMBOPLASTIN TIME 25.2 sec (23.4-31.0); PROTHROMBIN TIME 10.2 sec (9.4-11.6)
[2017-07-12 08:42] LABS: CARBON DIOXIDE 20 mEq/L (21-32); CHLORIDE 113 mEq/L (98-107); CREATINE KINASE 743 IU/L (26-192); CREATINE KINASE MB FRACTION 5.5 ng/mL (0.5-3.6); TROPONIN I 0.03 ng/mL (0.00-0.04)
[2017-07-12] MEDS ORDERED: HYDRALAZINE 20MG/ML VIAL IV ONE ×2 (08:45→10:45)
[2017-07-12] MEDS ORDERED: FUROSEMIDE 20MG/2ML VIAL IVP ONE (09:30)
[2017-07-12 09:51] LABS: CLARITY URINE CLOUDY (CLEAR); COLOR URINE YELLOW (YELLOW); GLUCOSE URINE NEGATIVE (NEGATIVE); KETONES URINE NEGATIVE (NEGATIVE); LEUKOCYTE ESTERASE URINE 2+ (NEGATIVE); NITRITE URINE NEGATIVE (NEGATIVE); OCCULT BLOOD URINE 2+ (NEGATIVE); PROTEIN URINE 3+ (NEGATIVE); SPECIFIC GRAVITY URINE 1.012 (1.005-1.030); UROBILINOGEN URINE 0.2 E.U./dL (0.2-1.0)
[2017-07-12] MEDS ORDERED: CEFTRIAXONE 1 G PREMIX 50 ML IV ONE (11:30)
[2017-07-12] MEDS ORDERED: LABETALOL 5MG/ML SYR 20 MG/4 ML SYRINGE IV ONE (11:30)
[2017-07-12] MEDS ORDERED: DIPHENHYDRAMINE 50MG/ML VIAL IV PRN (12:15)
[2017-07-12] MEDS ORDERED: MAGNESIUM/ALUMINUM HYDROXIDE/SIMETHICONE 30ML UDC PO PRN (12:15)
[2017-07-12] MEDS ORDERED: NA PHOS,M-B/NA PHOS,DI-BA ENEMA 118ML PR PRN (12:15)
[2017-07-12] MEDS ORDERED: ONDANSETRON HCL 4MG/2ML VIAL IV PRN (12:15)
[2017-07-12] MEDS ORDERED: IPRATROPIUM/ALBUTEROL 0.5-3(2.5)MG/3ML NEB INH PRN (12:15)
[2017-07-12] MEDS ORDERED: DOCUSATE SODIUM 100MG CAPSULE PO PRN (12:15)
[2017-07-12] MEDS: FUROSEMIDE 40MG/4ML VIAL IV SCH (13:46)
[2017-07-12 13:58] VITALS: BP 158/107
[2017-07-12] MEDS ORDERED: VANCOMYCIN 1500MG in DEXTROSE 5% WATER 250ML IV NR (14:00)
[2017-07-12] MEDS ORDERED: PIPERACILLIN/TAZ 2.25G PREMIX 50 ML IV SCH (14:00)
[2017-07-12 14:04] VITALS: BP 158/107
[2017-07-12] MEDS ORDERED: DEXTROSE 50% WATER 50ML SYRINGE IV PRN (14:30)
[2017-07-12] MEDS ORDERED: SODIUM POLYSTYRENE SULFONATE 15 G/60 ML BOT PO NR (14:30)
[2017-07-12 16:00] VITALS: BP 174/111
[2017-07-12] MEDS: PIPERACILLIN/TAZ 2.25G PREMIX 50 ML IV SCH ×2 (16:04→23:05)
[2017-07-12] MEDS: SODIUM CHLORIDE 0.9% 1,000 ML IV SCH ×2 (16:04→21:51)
[2017-07-12] MEDS: CLONIDINE 0.1MG TABLET PO PRN (16:12)
[2017-07-12 16:26] LABS: CLARITY URINE CLEAR (CLEAR); COLOR URINE YELLOW (YELLOW); GLUCOSE URINE NEGATIVE (NEGATIVE); KETONES URINE NEGATIVE (NEGATIVE); LEUKOCYTE ESTERASE URINE 2+ (NEGATIVE); NITRITE URINE NEGATIVE (NEGATIVE); OCCULT BLOOD URINE 1+ (NEGATIVE); PH URINE 6.5 (4.5-8.0); PROTEIN URINE 2+ (NEGATIVE); SPECIFIC GRAVITY URINE 1.009 (1.005-1.030); UROBILINOGEN URINE 0.2 E.U./dL (0.2-1.0)
[2017-07-12] MEDS: BLOOD SUGAR DIAGNOSTIC STRIP TEST SCH ×2 (17:03→21:51)
[2017-07-12] MEDS: INSULIN LISPRO 100 UNITS/ML SUBCUT SCH ×2 (17:36→21:00)
[2017-07-12 17:49] LABS: CREATINE KINASE 594 IU/L (26-192); CREATINE KINASE MB FRACTION 5.2 ng/mL (0.5-3.6); TROPONIN I < 0.02 ng/mL (0.00-0.04)
[2017-07-12 17:58] LABS: AMMONIA 47 uMol/L (<32)
[2017-07-12] MEDS ORDERED: WARFARIN SODIUM 7.5MG TABLET PO NR (18:00)
[2017-07-12 20:00] VITALS: BP_SYST 147; BP_DIAS 105; BP_DIAS 58
[2017-07-13] VITALS: BP 151/95
[2017-07-13 00:22] LABS: CREATINE KINASE MB FRACTION 4.8 ng/mL (0.5-3.6); TROPONIN I 0.02 ng/mL (0.00-0.04)
[2017-07-13 04:00] VITALS: BP 162/98
[2017-07-13] MEDS: HYDRALAZINE 20MG/ML VIAL IV PRN (06:02)
[2017-07-13] MEDS: PIPERACILLIN/TAZ 2.25G PREMIX 50 ML IV SCH ×3 (06:03→21:31)
[2017-07-13] MEDS: SODIUM CHLORIDE 0.9% 1,000 ML IV SCH ×2 (06:04→17:44)
[2017-07-13] MEDS: BLOOD SUGAR DIAGNOSTIC STRIP TEST SCH ×4 (06:34→21:31)
[2017-07-13 06:59] LABS: BASOPHILS % 0.8 % (0.0-2.0); EOSINOPHILS % 0.7 % (0.0-5.0); HEMATOCRIT. 27.1 % (36.0-48.0); HEMOGLOBIN. 8.8 g/dL (12.0-16.0); LYMPHOCYTES % 17.6 % (20.0-50.0); MEAN CORPUSCULAR HEMOGLOBIN 27.3 pg (28.0-32.0); MEAN CORPUSCULAR VOLUME 84.2 fL (81.0-99.0); MEAN PLATELET VOLUME 7.3 fl (7.4-10.4); MONOCYTES % 7.2 % (2.0-8.0); NEUTROPHILS % 73.7 % (40.0-76.0); PLATELET 234 x1000/uL (130-400); RED BLOOD CELL COUNT 3.22 mill/uL (4.2-5.4); RED CELL DISTRIBUTION WIDTH 15.9 % (11.6-14.6)
[2017-07-13 07:04] LABS: INR 1.1
[2017-07-13 07:37] LABS: BG BASE EXCESS -0.6 mmol/L (-2.0-2.0); BG DEOXYHEMOGLOBIN 5.4 % (0.0-5.0); BG HCO3 ACT 22.5 mmol/L (22.0-26.0); BG OXYGEN SATURATION 94.6 % (92.0-98.5); BG OXYHEMOGLOBIN 94.6 % (94.0-97.0); BG PCO2 31.4 mmHg (35.0-45.0); BG PH 7.473 (7.350-7.450); BG PO2 70.5 mmHg (75.0-100.0); BG SAMPLE SITE RIGHT BRACHIAL; BG TOTAL HEMOGLOBIN 9.8 g/dL (12.0-18.0); BG VENT MODE ROOM AIR
[2017-07-13] MEDS: INSULIN LISPRO 100 UNITS/ML SUBCUT SCH ×4 (07:50→21:00)
[2017-07-13 07:59] LABS: CHLORIDE 114 mEq/L (98-107)
[2017-07-13 08:03] VITALS: BP 134/86
[2017-07-13 08:18] LABS: CARBON DIOXIDE 20 mEq/L (21-32); HDL CHOLESTEROL 62 mg/dL (40-59); LDL CHOLESTEROL 106 mg/dL (5-100)
[2017-07-13] MEDS: FUROSEMIDE 40MG/4ML VIAL IV SCH (08:35)
[2017-07-13 12:01] VITALS: BP 163/95
[2017-07-13 16:00] VITALS: BP 139/87
[2017-07-13] MEDS: WARFARIN SODIUM 7.5MG TABLET PO SCH (17:42)
[2017-07-13] MEDS ORDERED: VANCOMYCIN 750 MG PREMIX 150 ML IV SCH (18:00)
[2017-07-13 20:00] VITALS: BP 151/94
[2017-07-14] VITALS: BP 159/96
[2017-07-14 04:00] VITALS: BP 177/101
[2017-07-14] MEDS: HYDRALAZINE 20MG/ML VIAL IV PRN (04:31)
[2017-07-14] MEDS: SODIUM CHLORIDE 0.9% 1,000 ML IV SCH ×2 (04:35→14:03)
[2017-07-14] MEDS: PIPERACILLIN/TAZ 2.25G PREMIX 50 ML IV SCH (05:53)
[2017-07-14] MEDS: BLOOD SUGAR DIAGNOSTIC STRIP TEST SCH ×4 (05:57→21:53)
[2017-07-14] MEDS: INSULIN LISPRO 100 UNITS/ML SUBCUT SCH ×4 (05:57→21:00)
[2017-07-14 07:25] LABS: INR 1.4; PROTHROMBIN TIME 14.2 sec (9.4-11.6)
[2017-07-14 07:30] LABS: BASOPHILS % 0.4 % (0.0-2.0); EOSINOPHILS % 0.6 % (0.0-5.0); HEMATOCRIT. 26.8 % (36.0-48.0); HEMOGLOBIN. 8.8 g/dL (12.0-16.0); LYMPHOCYTES % 18.5 % (20.0-50.0); MEAN CORPUSCULAR HEMOGLOBIN 27.4 pg (28.0-32.0); MEAN CORPUSCULAR VOLUME 83.9 fL (81.0-99.0); MEAN PLATELET VOLUME 7.4 fl (7.4-10.4); MONOCYTES % 7.2 % (2.0-8.0); NEUTROPHILS % 73.3 % (40.0-76.0); PLATELET 222 x1000/uL (130-400); RED CELL DISTRIBUTION WIDTH 15.6 % (11.6-14.6)
[2017-07-14 08:01] VITALS: BP 141/83
[2017-07-14] MEDS: HYDROCODONE/ACETAMINOPHEN 5/325MG TABLET PO PRN (10:12)
[2017-07-14 12:06] VITALS: BP 137/82
[2017-07-14 16:00] VITALS: BP 158/97
[2017-07-14] MEDS: CLONIDINE 0.1MG TABLET PO PRN (17:44)
[2017-07-14] MEDS: WARFARIN SODIUM 7.5MG TABLET PO SCH (17:44)
[2017-07-14] MEDS: AMPICILLIN 1,000 MG in SODIUM CHLORIDE 0.9% 50 ML IV SCH (17:44)
[2017-07-14 20:00] VITALS: BP 168/99
[2017-07-14] MEDS: METOPROLOL TARTRATE 50MG TABLET PO SCH (21:53)
[2017-07-15] VITALS: BP 168/100
[2017-07-15] MEDS: HYDRALAZINE 20MG/ML VIAL IV PRN (00:40)
[2017-07-15] MEDS: SODIUM CHLORIDE 0.9% 1,000 ML IV SCH ×2 (03:29→12:30)
[2017-07-15 04:00] VITALS: BP 152/93
[2017-07-15] MEDS: AMPICILLIN 1,000 MG in SODIUM CHLORIDE 0.9% 50 ML IV SCH ×2 (06:08→17:16)
[2017-07-15] MEDS: BLOOD SUGAR DIAGNOSTIC STRIP TEST SCH ×4 (06:43→21:23)
[2017-07-15] MEDS: INSULIN LISPRO 100 UNITS/ML SUBCUT SCH ×4 (06:44→21:00)
[2017-07-15 07:00] LABS: INR 1.7; PROTHROMBIN TIME 17.4 sec (9.4-11.6)
[2017-07-15 08:00] VITALS: BP 172/104
[2017-07-15] MEDS: METOPROLOL TARTRATE 50MG TABLET PO SCH ×2 (08:25→21:22)
[2017-07-15 09:47] LABS: BASOPHILS % 0.6 % (0.0-2.0); EOSINOPHILS % 1.2 % (0.0-5.0); HEMATOCRIT. 28.4 % (36.0-48.0); HEMOGLOBIN. 9.1 g/dL (12.0-16.0); LYMPHOCYTES % 22.6 % (20.0-50.0); MEAN CORPUSCULAR HEMOGLOBIN 27.3 pg (28.0-32.0); MEAN CORPUSCULAR VOLUME 85.2 fL (81.0-99.0); MEAN PLATELET VOLUME 7.6 fl (7.4-10.4); MONOCYTES % 6.6 % (2.0-8.0); PLATELET 228 x1000/uL (130-400); RED BLOOD CELL COUNT 3.34 mill/uL (4.2-5.4); RED CELL DISTRIBUTION WIDTH 15.8 % (11.6-14.6)
[2017-07-15 12:00] VITALS: BP 165/96
[2017-07-15] MEDS ORDERED: CLONIDINE 0.1MG TABLET PO PRN (13:15)
[2017-07-15] MEDS ORDERED: ENOXAPARIN 60MG/0.6ML SYR SUBCUT SCH (14:00)
[2017-07-15 16:00] VITALS: BP 190/107
[2017-07-15] MEDS: AMLODIPINE 2.5MG TABLET PO SCH (17:16)
[2017-07-15] MEDS: CLONIDINE 0.2MG TABLET PO PRN (17:17)
[2017-07-15] MEDS ORDERED: WARFARIN SODIUM 7.5MG TABLET PO NR (18:00)
[2017-07-15 20:00] VITALS: BP 142/86
[2017-07-16] VITALS (7 sets, daily range): BP systolic 109–186; BP diastolic 74–100
[2017-07-16] MEDS: SODIUM CHLORIDE 0.9% 1,000 ML IV SCH ×3 (01:00→16:33)
[2017-07-16] MEDS: CLONIDINE 0.2MG TABLET PO PRN (05:47)
[2017-07-16] MEDS: AMPICILLIN 1,000 MG in SODIUM CHLORIDE 0.9% 50 ML IV SCH ×2 (05:47→16:33)
[2017-07-16 06:48] LABS: INR 2.9; PROTHROMBIN TIME 29.9 sec (9.4-11.6)
[2017-07-16 06:55] LABS: BASOPHILS % 0.3 % (0.0-2.0); HEMOGLOBIN. 9.7 g/dL (12.0-16.0); LYMPHOCYTES % 21.7 % (20.0-50.0); MEAN CORPUSCULAR HEMOGLOBIN 27.7 pg (28.0-32.0); MEAN CORPUSCULAR VOLUME 85.9 fL (81.0-99.0); MEAN PLATELET VOLUME 7.7 fl (7.4-10.4); MONOCYTES % 8.5 % (2.0-8.0); NEUTROPHILS % 68.5 % (40.0-76.0); PLATELET 259 x1000/uL (130-400); RED BLOOD CELL COUNT 3.49 mill/uL (4.2-5.4); RED CELL DISTRIBUTION WIDTH 15.9 % (11.6-14.6)
[2017-07-16 07:37] LABS: CARBON DIOXIDE 18 mEq/L (21-32); CHLORIDE 114 mEq/L (98-107); HDL CHOLESTEROL 65 mg/dL (40-59); LDL CHOLESTEROL 106 mg/dL (5-100)
[2017-07-16] MEDS: INSULIN LISPRO 100 UNITS/ML SUBCUT SCH ×4 (07:50→21:55)
[2017-07-16] MEDS: BLOOD SUGAR DIAGNOSTIC STRIP TEST SCH ×4 (08:06→21:57)
[2017-07-16] MEDS: AMLODIPINE 2.5MG TABLET PO SCH ×2 (08:07→16:34)
[2017-07-16] MEDS: METOPROLOL TARTRATE 50MG TABLET PO SCH ×2 (08:08→21:00)
[2017-07-16] MEDS ORDERED: POTASSIUM CHLORIDE 20MEQ TABLET SR PO SCH (10:30)
[2017-07-16 11:07] LABS: T4 FREE 1.04 ng/dL (0.76-1.46)
[2017-07-16] MEDS ORDERED: MAGNESIUM 2 G PREMIX 50 ML IV SCH (12:00)
[2017-07-16] MEDS: HYDRALAZINE HCL 50MG TABLET PO SCH ×2 (12:29→21:57)
[2017-07-17] VITALS: BP 146/89
[2017-07-17] MEDS: SODIUM CHLORIDE 0.9% 1,000 ML IV SCH ×2 (02:30→14:14)
[2017-07-17 04:00] VITALS: BP 150/88
[2017-07-17] MEDS: AMPICILLIN 1,000 MG in SODIUM CHLORIDE 0.9% 50 ML IV SCH ×2 (05:30→17:50)
[2017-07-17] MEDS: HYDRALAZINE HCL 50MG TABLET PO SCH ×3 (05:31→21:13)
[2017-07-17 06:44] LABS: INR 2.8; PROTHROMBIN TIME 29.5 sec (9.4-11.6)
[2017-07-17 07:07] LABS: BASOPHILS % 0.3 % (0.0-2.0); EOSINOPHILS % 0.8 % (0.0-5.0); HEMATOCRIT. 27.4 % (36.0-48.0); HEMOGLOBIN. 8.8 g/dL (12.0-16.0); MEAN CORPUSCULAR HEMOGLOBIN 27.4 pg (28.0-32.0); MEAN CORPUSCULAR VOLUME 85.1 fL (81.0-99.0); MEAN PLATELET VOLUME 7.6 fl (7.4-10.4); NEUTROPHILS % 76.9 % (40.0-76.0); PLATELET 233 x1000/uL (130-400); RED BLOOD CELL COUNT 3.22 mill/uL (4.2-5.4); RED CELL DISTRIBUTION WIDTH 15.4 % (11.6-14.6)
[2017-07-17] MEDS: BLOOD SUGAR DIAGNOSTIC STRIP TEST SCH ×4 (07:20→21:13)
[2017-07-17] MEDS: INSULIN LISPRO 100 UNITS/ML SUBCUT SCH ×4 (07:50→21:00)
[2017-07-17 07:59] VITALS: BP 155/90
[2017-07-17 08:19] LABS: CARBON DIOXIDE 19 mEq/L (21-32); CHLORIDE 116 mEq/L (98-107)
[2017-07-17] MEDS: AMLODIPINE 2.5MG TABLET PO SCH ×2 (08:52→17:49)
[2017-07-17] MEDS: METOPROLOL TARTRATE 50MG TABLET PO SCH ×2 (08:52→21:00)
[2017-07-17] MEDS: HYDROCODONE/ACETAMINOPHEN 5/325MG TABLET PO PRN (09:15)
[2017-07-17 11:00] VITALS: BP 137/75
[2017-07-17] MEDS: LEVOTHYROXINE SODIUM 50MCG TABLET PO SCH (11:38)
[2017-07-17 15:43] VITALS: BP 145/83
[2017-07-17] MEDS ORDERED: WARFARIN SODIUM 2MG TABLET PO NR (18:00)
[2017-07-17 19:40] VITALS: BP 155/91
[2017-07-17] MEDS: ACETAMINOPHEN 325MG TABLET PO PRN (22:49)
[2017-07-18 00:39] VITALS: BP 120/80
[2017-07-18 05:00] VITALS: BP 176/85
[2017-07-18] MEDS: HYDRALAZINE HCL 50MG TABLET PO SCH ×3 (05:27→21:55)
[2017-07-18] MEDS: AMPICILLIN 1,000 MG in SODIUM CHLORIDE 0.9% 50 ML IV SCH ×2 (05:34→17:03)
[2017-07-18 05:59] LABS: INR 2.9; PROTHROMBIN TIME 29.9 sec (9.4-11.6)
[2017-07-18] MEDS: LEVOTHYROXINE SODIUM 50MCG TABLET PO SCH (06:21)
[2017-07-18] MEDS: BLOOD SUGAR DIAGNOSTIC STRIP TEST SCH ×4 (06:24→21:52)
[2017-07-18 06:30] LABS: BASOPHILS % 0.3 % (0.0-2.0); EOSINOPHILS % 0.5 % (0.0-5.0); HEMATOCRIT. 28.4 % (36.0-48.0); HEMOGLOBIN. 9.1 g/dL (12.0-16.0); LYMPHOCYTES % 14.6 % (20.0-50.0); MEAN CORPUSCULAR HEMOGLOBIN 27.5 pg (28.0-32.0); MEAN CORPUSCULAR VOLUME 85.4 fL (81.0-99.0); MEAN PLATELET VOLUME 7.6 fl (7.4-10.4); NEUTROPHILS % 76.6 % (40.0-76.0); PLATELET 272 x1000/uL (130-400); RED BLOOD CELL COUNT 3.33 mill/uL (4.2-5.4)
[2017-07-18] MEDS: INSULIN LISPRO 100 UNITS/ML SUBCUT SCH ×4 (07:50→21:00)
[2017-07-18 07:51] VITALS: BP 158/97
[2017-07-18 08:09] LABS: PHOSPHORUS 3.6 mg/dL (2.5-4.9)
[2017-07-18] MEDS: AMLODIPINE 2.5MG TABLET PO SCH ×2 (09:14→17:03)
[2017-07-18] MEDS: METOPROLOL TARTRATE 50MG TABLET PO SCH ×2 (09:14→21:57)
[2017-07-18] MEDS: ACETAMINOPHEN 325MG TABLET PO PRN (09:30)
[2017-07-18 12:04] VITALS: BP 152/86
[2017-07-18] MEDS: SODIUM CHLORIDE 0.9% 1,000 ML IV SCH (12:48)
[2017-07-18] MEDS ORDERED: HYDRALAZINE HCL 50MG TABLET PO SCH (14:50)
[2017-07-18 16:00] VITALS: BP 160/86
[2017-07-18] MEDS ORDERED: WARFARIN SODIUM 1MG TABLET PO SCH (18:00)
[2017-07-18 23:58] VITALS: BP 149/88
[2017-07-19 04:30] VITALS: BP 166/98
[2017-07-19] MEDS: HYDRALAZINE HCL 50MG TABLET PO SCH ×2 (05:29→14:07)
[2017-07-19] MEDS: AMPICILLIN 1,000 MG in SODIUM CHLORIDE 0.9% 50 ML IV SCH (05:54)
[2017-07-19] MEDS: LEVOTHYROXINE SODIUM 50MCG TABLET PO SCH (06:24)
[2017-07-19] MEDS: BLOOD SUGAR DIAGNOSTIC STRIP TEST SCH ×2 (06:25→12:20)
[2017-07-19 07:23] LABS: INR 3.1; PROTHROMBIN TIME 32.1 sec (9.4-11.6)
[2017-07-19] MEDS: INSULIN LISPRO 100 UNITS/ML SUBCUT SCH ×2 (07:50→14:04)
[2017-07-19] MEDS: METOPROLOL TARTRATE 50MG TABLET PO SCH (10:04)
[2017-07-19] MEDS: AMLODIPINE 2.5MG TABLET PO SCH (10:05)
[2017-07-19 15:58] VITALS: BP 160/94
== END 2017-07-19 16:30 | disposition home health service (06) | DRG 871 ==
LOC: ER 07:53 → 6WST 09:33 → EDBEDREQ 09:35 → CANRESERV 10:08 → ENRESERV 10:08
PROVIDERS: ADMIT Internal Medicine; ATTEND Internal Medicine
DX: A40.8 Other streptococcal sepsis (principal); N17.0 Acute kidney failure with tubular necrosis; E43 Unspecified severe protein-calorie malnutrition; I47.2 Ventricular tachycardia; G92 Toxic encephalopathy; N18.3 Chronic kidney disease, stage 3 (moderate); E83.42 Hypomagnesemia; M62.82 Rhabdomyolysis; E87.0 Hyperosmolality and hypernatremia; I82.402 Acute embolism and thrombosis of unspecified deep veins of left lower extremity; N39.0 Urinary tract infection, site not specified; I13.0 Hypertensive heart and chronic kidney disease with heart failure and stage 1 through stage 4 chronic kidney disease, or unspecified chronic kidney disease; J44.1 Chronic obstructive pulmonary disease with (acute) exacerbation; W18.30XA Fall on same level, unspecified, initial encounter; I50.9 Heart failure, unspecified; E11.22 Type 2 diabetes mellitus with diabetic chronic kidney disease; Z96.641 Presence of right artificial hip joint; D64.9 Anemia, unspecified; R55 Syncope and collapse; E03.9 Hypothyroidism, unspecified; E78.5 Hyperlipidemia, unspecified; I16.0 Hypertensive urgency; I35.1 Nonrheumatic aortic (valve) insufficiency; J44.9 Chronic obstructive pulmonary disease, unspecified; B95.2 Enterococcus as the cause of diseases classified elsewhere; K80.20 Calculus of gallbladder without cholecystitis without obstruction; M47.9 Spondylosis, unspecified; M48.00 Spinal stenosis, site unspecified; M85.80 Other specified disorders of bone density and structure, unspecified site; Z79.82 Long term (current) use of aspirin; Y92.009 Unspecified place in unspecified non-institutional (private) residence as the place of occurrence of the external cause; Z86.711 Personal history of pulmonary embolism; Z68.29 Body mass index [BMI] 29.0-29.9, adult; Z79.01 Long term (current) use of anticoagulants
CPT/HCPCS: 36415; 36600; 51702; 70450; 71010; 72125; 72192; 73562; 76770; 80048; 80053; 80061; 80202; 81001; 82140; 82375; 82550; 82553; 82805; 82962; 83605; 83690; 83735; 83880; 84100; 84439; 84443; 84481; 84484; 85025; 85610; 85730; 87040; 87077; 87086; 87186; 93005; 93970; 96361; 96374; 96375; 97110; 97116; 97162; 97166; 97530; 99291; C1893; J0290; J0360; J0696; J1650; J1815; J1940; J2543; J3370; J3475; J3490; J7030; J7060; A4315

== ENCOUNTER 2017-07-29 07:21 | Inpatient (IN) | payer OTHER, MEDICAID ==
[~2017-07-29] VITALS: Ht 162.6 cm; Wt 44.5 kg
[2017-07-29] MEDS ORDERED: SODIUM CHLORIDE 0.9% 1,000 ML IV ONE (07:40)
[2017-07-29 08:20] LABS: HEMATOCRIT. 30.6 % (36.0-48.0); HEMOGLOBIN. 9.5 g/dL (12.0-16.0); MEAN CORPUSCULAR HEMOGLOBIN 26.4 pg (28.0-32.0); MEAN CORPUSCULAR VOLUME 84.9 fL (81.0-99.0); MEAN PLATELET VOLUME 8.2 fl (7.4-10.4); PLATELET 281 x1000/uL (130-400); RED CELL DISTRIBUTION WIDTH 15.7 % (11.6-14.6)
[2017-07-29 08:22] LABS: INR 1.4; PROTHROMBIN TIME 14.5 sec (9.4-11.6)
[2017-07-29 08:28] LABS: AMMONIA 12 uMol/L (<32)
[2017-07-29 08:29] LABS: CARBON DIOXIDE 20 mEq/L (21-32); CHLORIDE 112 mEq/L (98-107); ETHANOL BLOOD < 10 mg/dL
[2017-07-29 08:32] LABS: TROPONIN I < 0.02 ng/mL (0.00-0.04)
[2017-07-29 09:39] LABS: GLUCOSE URINE NEGATIVE (NEGATIVE); KETONES URINE NEGATIVE (NEGATIVE); LEUKOCYTE ESTERASE URINE NEGATIVE (NEGATIVE); NITRITE URINE NEGATIVE (NEGATIVE); OCCULT BLOOD URINE TRACE (NEGATIVE); PROTEIN URINE 3+ (NEGATIVE); SPECIFIC GRAVITY URINE 1.014 (1.005-1.030); UROBILINOGEN URINE 0.2 E.U./dL (0.2-1.0)
[2017-07-29 09:42] LABS: CLARITY URINE HAZY (CLEAR); COLOR URINE YELLOW (YELLOW)
[2017-07-29 09:55] LABS: PLATELET ESTIMATE NORMAL
[2017-07-29 09:56] LABS: *AMPHETAMINES SCREEN URINE NEGATIVE (NEGATIVE); *BARBITURATES SCREEN URINE NEGATIVE (NEGATIVE); *BENZODIAZEPINES SCREEN URINE NEGATIVE (NEGATIVE); *COCAINE SCREEN URINE NEGATIVE (NEGATIVE); CANNABINOID URINE SCREEN NEGATIVE (NEGATIVE); METHADONE URINE SCREEN NEGATIVE (NEGATIVE); OPIATES URINE SCREEN NEGATIVE (NEGATIVE); PHENCYCLIDINE URINE SCREEN NEGATIVE (NEGATIVE)
[2017-07-29] MEDS ORDERED: ACETAMINOPHEN 325MG TABLET PO PRN (11:30)
[2017-07-29] MEDS ORDERED: IPRATROPIUM/ALBUTEROL 0.5-3(2.5)MG/3ML NEB INH PRN (11:30)
[2017-07-29] MEDS ORDERED: ONDANSETRON HCL 4MG/2ML VIAL IV PRN (11:30)
[2017-07-29] MEDS ORDERED: DIPHENHYDRAMINE 50MG/ML VIAL IV PRN (11:30)
[2017-07-29 13:15] VITALS: BP 115/70
[2017-07-29 14:30] VITALS: BP 115/70
[2017-07-29] MEDS: CEFTRIAXONE 1 G PREMIX 50 ML IV SCH (15:25)
[2017-07-29 16:00] VITALS: BP 112/52
[2017-07-29] MEDS ORDERED: DEXTROSE 50% WATER 50ML SYRINGE IV PRN (19:00)
[2017-07-29 20:00] VITALS: BP 148/88
[2017-07-29] MEDS: INSULIN LISPRO 100 UNITS/ML SUBCUT SCH (21:00)
[2017-07-29] MEDS: BLOOD SUGAR DIAGNOSTIC STRIP TEST SCH (21:00)
[2017-07-29 22:41] LABS: AMMONIA 12 uMol/L (<32)
[2017-07-29 22:53] LABS: T4 FREE 1.14 ng/dL (0.76-1.46)
[2017-07-30] VITALS: BP 115/80
[2017-07-30] MEDS ORDERED: CEFTRIAXONE 1 G PREMIX 50 ML IV SCH (01:00)
[2017-07-30] MEDS: HYDROCODONE/ACETAMINOPHEN 5/325MG TABLET PO PRN ×3 (01:09→20:32)
[2017-07-30 04:00] VITALS: BP 120/78
[2017-07-30 05:27] LABS: HEMATOCRIT. 28.5 % (36.0-48.0); HEMOGLOBIN. 8.8 g/dL (12.0-16.0); MEAN CORPUSCULAR HEMOGLOBIN 26.5 pg (28.0-32.0); MEAN CORPUSCULAR VOLUME 86.1 fL (81.0-99.0); MEAN PLATELET VOLUME 8.4 fl (7.4-10.4); PLATELET 266 x1000/uL (130-400); RED BLOOD CELL COUNT 3.31 mill/uL (4.2-5.4); RED CELL DISTRIBUTION WIDTH 15.8 % (11.6-14.6)
[2017-07-30 06:28] LABS: CARBON DIOXIDE 14 mEq/L (21-32); CHLORIDE 113 mEq/L (98-107); LDL CHOLESTEROL 100 mg/dL (5-100)
[2017-07-30 06:31] LABS: HDL CHOLESTEROL 61 mg/dL (40-59)
[2017-07-30] MEDS: BLOOD SUGAR DIAGNOSTIC STRIP TEST SCH ×4 (07:33→20:28)
[2017-07-30] MEDS: INSULIN LISPRO 100 UNITS/ML SUBCUT SCH ×4 (07:33→20:28)
[2017-07-30 08:00] VITALS: BP 136/86
[2017-07-30] MEDS ORDERED: METFORMIN HCL 500MG TABLET PO SCH (09:00)
[2017-07-30] MEDS: ASPIRIN 81MG EC TABLET PO SCH (09:10)
[2017-07-30] MEDS: CEFTRIAXONE 1 G PREMIX 50 ML IV SCH (09:11)
[2017-07-30 09:36] LABS: BG BASE EXCESS -11.4 mmol/L (-2.0-2.0); BG CARBOXYHEMOGLOBIN 0.1 % (0.5-1.5); BG DEOXYHEMOGLOBIN 3.7 % (0.0-5.0); BG FRACTION INSPIRED OXYGEN 21; BG HCO3 ACT 14.5 mmol/L (22.0-26.0); BG METHEMOGLOBIN 0.1 % (0.0-1.5); BG OXYGEN SATURATION 96.3 % (92.0-98.5); BG OXYHEMOGLOBIN 96.1 % (94.0-97.0); BG PCO2 32.3 mmHg (35.0-45.0); BG PH 7.269 (7.350-7.450); BG PO2 92.4 mmHg (75.0-100.0); BG SAMPLE SITE RIGHT BRACHIAL; BG TOTAL HEMOGLOBIN 9.5 g/dL (12.0-18.0); BG VENT MODE ROOM AIR
[2017-07-30 12:00] VITALS: BP_SYST 124; BP_SYST 125; BP_DIAS 82; BP_DIAS 91
[2017-07-30] MEDS: SODIUM CHLORIDE 0.45% 1,000 ML IV SCH ×2 (13:04→22:50)
[2017-07-30] MEDS: CITRIC ACID/SODIUM CITRATE SOLN 30ML UDC PO SCH ×2 (13:04→17:35)
[2017-07-30 16:00] VITALS: BP 156/99
[2017-07-30 20:00] VITALS: BP 112/74
[2017-07-30 23:17] LABS: PLATELET ESTIMATE NORMAL
[2017-07-31] VITALS (7 sets, daily range): BP systolic 118–143; BP diastolic 60–103
[2017-07-31 07:10] LABS: CARBON DIOXIDE 20 mEq/L (21-32); CHLORIDE 115 mEq/L (98-107)
[2017-07-31 07:15] LABS: HAPTOGLOBIN 96 mg/dL (30-200)
[2017-07-31] MEDS: BLOOD SUGAR DIAGNOSTIC STRIP TEST SCH ×4 (07:48→20:38)
[2017-07-31] MEDS: INSULIN LISPRO 100 UNITS/ML SUBCUT SCH ×4 (07:48→20:38)
[2017-07-31 07:53] LABS: HEMATOCRIT. 25.5 % (36.0-48.0); MEAN CORPUSCULAR HEMOGLOBIN 26.7 pg (28.0-32.0); MEAN CORPUSCULAR VOLUME 84.9 fL (81.0-99.0); MEAN PLATELET VOLUME 8.5 fl (7.4-10.4); PLATELET 233 x1000/uL (130-400); RED BLOOD CELL COUNT 3.01 mill/uL (4.2-5.4)
[2017-07-31 08:15] LABS: PHOSPHORUS 4.3 mg/dL (2.5-4.9)
[2017-07-31] MEDS: CEFTRIAXONE 1 G PREMIX 50 ML IV SCH (08:53)
[2017-07-31] MEDS: ASPIRIN 81MG EC TABLET PO SCH (08:53)
[2017-07-31] MEDS: CITRIC ACID/SODIUM CITRATE SOLN 30ML UDC PO SCH ×3 (08:53→17:14)
[2017-07-31] MEDS: HYDROCODONE/ACETAMINOPHEN 5/325MG TABLET PO PRN ×2 (08:54→17:15)
[2017-07-31] MEDS: DEXT 5%/0.45% NACL 1000ML 1,000 ML IV SCH ×2 (09:00→17:22)
[2017-07-31] MEDS: AMLODIPINE 2.5MG TABLET PO SCH ×2 (15:06→20:38)
[2017-07-31] MEDS: FLUCONAZOLE 100MG TABLET PO SCH (15:06)
[2017-07-31 16:34] LABS: PLATELET ESTIMATE NORMAL
[2017-08-01] VITALS: BP 146/87
[2017-08-01] MEDS: HYDROCODONE/ACETAMINOPHEN 5/325MG TABLET PO PRN ×2 (00:29→10:24)
[2017-08-01] MEDS: DEXT 5%/0.45% NACL 1000ML 1,000 ML IV SCH (03:05)
[2017-08-01 04:00] VITALS: BP 152/89
[2017-08-01] MEDS: BLOOD SUGAR DIAGNOSTIC STRIP TEST SCH ×4 (06:42→21:05)
[2017-08-01 07:18] LABS: HEMATOCRIT. 25.6 % (36.0-48.0); HEMOGLOBIN. 8.1 g/dL (12.0-16.0); MEAN CORPUSCULAR HEMOGLOBIN 26.4 pg (28.0-32.0); MEAN CORPUSCULAR VOLUME 83.5 fL (81.0-99.0); PLATELET 259 x1000/uL (130-400); RED BLOOD CELL COUNT 3.07 mill/uL (4.2-5.4); RED CELL DISTRIBUTION WIDTH 16.1 % (11.6-14.6)
[2017-08-01 07:34] LABS: CHLORIDE 113 mEq/L (98-107)
[2017-08-01] MEDS: INSULIN LISPRO 100 UNITS/ML SUBCUT SCH ×4 (07:36→21:06)
[2017-08-01 08:00] VITALS: BP_SYST 146; BP_SYST 153; BP_DIAS 100; BP_DIAS 103
[2017-08-01] MEDS: FLUCONAZOLE 100MG TABLET PO SCH (08:12)
[2017-08-01] MEDS: CITRIC ACID/SODIUM CITRATE SOLN 30ML UDC PO SCH ×3 (08:12→17:27)
[2017-08-01] MEDS: AMLODIPINE 2.5MG TABLET PO SCH ×2 (08:12→21:07)
[2017-08-01] MEDS: ASPIRIN 81MG EC TABLET PO SCH (08:12)
[2017-08-01 08:13] LABS: CARBON DIOXIDE 19 mEq/L (21-32); PHOSPHORUS 2.6 mg/dL (2.5-4.9)
[2017-08-01] MEDS ORDERED: POTASSIUM CHLORIDE 20MEQ TABLET SR PO SCH (13:30)
[2017-08-01] MEDS ORDERED: MAGNESIUM 1 G PREMIX 100 ML IV SCH (15:00)
[2017-08-01] MEDS: DEXT 5%/0.2% NACL 1,000 ML IV SCH (15:20)
[2017-08-01] MEDS: CEFEPIME 1,000 MG in DEXTROSE 5% WATER 50 ML IV SCH (15:22)
[2017-08-01] MEDS: ISOSORBIDE MONONITRATE 30MG TABLET SR 24HR PO SCH (15:22)
[2017-08-01] MEDS: CLONIDINE 0.1MG TABLET PO PRN (15:24)
[2017-08-01 16:00] VITALS: BP 156/100
[2017-08-01 16:29] LABS: PLATELET ESTIMATE NORMAL
[2017-08-01 20:00] VITALS: BP_SYST 132; BP_SYST 140; BP_DIAS 86; BP_DIAS 90
[2017-08-01] MEDS: METOPROLOL TARTRATE 25MG TABLET PO SCH (21:07)
[2017-08-01] MEDS: ATORVASTATIN CALCIUM 10MG TABLET PO SCH (21:07)
[2017-08-02] VITALS: BP 124/71
[2017-08-02] MEDS: ISOSORBIDE MONONITRATE 30MG TABLET SR 24HR PO SCH ×3 (00:04→21:49)
[2017-08-02 04:00] VITALS: BP 120/89
[2017-08-02] MEDS: DEXT 5%/0.2% NACL 1,000 ML IV SCH (05:46)
[2017-08-02 06:21] LABS: CARBON DIOXIDE 25 mEq/L (21-32); CHLORIDE 110 mEq/L (98-107); PHOSPHORUS 2.3 mg/dL (2.5-4.9); TOTAL IRON BINDING CAPACITY 145 ug/dL (250-450)
[2017-08-02] MEDS: BLOOD SUGAR DIAGNOSTIC STRIP TEST SCH ×4 (07:00→21:41)
[2017-08-02 07:17] LABS: FOLIC ACID (FOLATE) SERUM 5.4 ng/mL (>5.38)
[2017-08-02 07:18] LABS: A/G RATIO 0.7 (0.7-1.7); ALBUMIN 2.1 g/dL (2.9-4.4); ALPHA-1-GLOBULIN 0.6 g/dL (0.0-0.4); ALPHA-2-GLOBULIN 0.6 g/dL (0.4-1.0); GLOBULIN TOTAL 3.1 g/dL (2.2-3.9); M-SPIKE Not Observed g/dL (Not Observed); TOTAL PROTEIN SERUM 5.2 g/dL (6.0-8.5)
[2017-08-02 07:32] LABS: HEMOGLOBIN. 7.4 g/dL (12.0-16.0); MEAN CORPUSCULAR HEMOGLOBIN 26.6 pg (28.0-32.0); MEAN CORPUSCULAR VOLUME 82.5 fL (81.0-99.0); PLATELET 252 x1000/uL (130-400); RED BLOOD CELL COUNT 2.79 mill/uL (4.2-5.4); RED CELL DISTRIBUTION WIDTH 15.3 % (11.6-14.6)
[2017-08-02] MEDS: INSULIN LISPRO 100 UNITS/ML SUBCUT SCH ×4 (07:54→21:00)
[2017-08-02 08:00] VITALS: BP_SYST 140; BP_SYST 151; BP_DIAS 86; BP_DIAS 96
[2017-08-02 08:26] LABS: TROPONIN I < 0.02 ng/mL (0.00-0.04)
[2017-08-02] MEDS ORDERED: FLUCONAZOLE 100MG/50ML PREMIX IV SCH (09:00)
[2017-08-02] MEDS: METOPROLOL TARTRATE 25MG TABLET PO SCH ×2 (09:29→21:50)
[2017-08-02] MEDS: FERROUS SULFATE 325MG TABLET PO SCH ×3 (09:29→17:10)
[2017-08-02] MEDS: FLUCONAZOLE 100 MG/50ML BAG 50 ML IV SCH (09:30)
[2017-08-02] MEDS: ASPIRIN 81MG EC TABLET PO SCH (09:30)
[2017-08-02] MEDS: CEFEPIME 1,000 MG in DEXTROSE 5% WATER 50 ML IV SCH (09:30)
[2017-08-02] MEDS: CITRIC ACID/SODIUM CITRATE SOLN 30ML UDC PO SCH ×3 (09:30→17:10)
[2017-08-02] MEDS: AMLODIPINE 2.5MG TABLET PO SCH ×2 (09:30→21:49)
[2017-08-02] MEDS ORDERED: POTASSIUM PHOS,M-BASIC-D-BASIC 15 MMOL in DEXT 5% WATER 245 ML IV NR (10:00)
[2017-08-02 12:00] VITALS: BP 140/80
[2017-08-02 14:05] LABS: NUCLEATED RED BLOOD CELLS 1 /100 WBC
[2017-08-02 14:06] LABS: PLATELET ESTIMATE NORMAL
[2017-08-02 15:12] LABS: ALBUMIN URINE Note: % (.); TOTAL PROTEIN RANDOM URINE 239.2 mg/dL (Not Estab.)
[2017-08-02 16:00] VITALS: BP 134/80
[2017-08-02 20:00] VITALS: BP 153/96
[2017-08-02] MEDS: ATORVASTATIN CALCIUM 10MG TABLET PO SCH (21:49)
[2017-08-03] VITALS (11 sets, daily range): BP systolic 116–150; BP diastolic 74–97
[2017-08-03] MEDS: CLONIDINE 0.1MG TABLET PO PRN (05:19)
[2017-08-03] MEDS: BLOOD SUGAR DIAGNOSTIC STRIP TEST SCH ×4 (05:19→21:03)
[2017-08-03 06:34] LABS: BASOPHILS % 0.2 % (0.0-2.0); EOSINOPHILS % 0.2 % (0.0-5.0); LYMPHOCYTES % 9.7 % (20.0-50.0); MEAN CORPUSCULAR HEMOGLOBIN 26.8 pg (28.0-32.0); MEAN CORPUSCULAR VOLUME 81.8 fL (81.0-99.0); MONOCYTES % 5.7 % (2.0-8.0); NEUTROPHILS % 84.2 % (40.0-76.0); PLATELET 250 x1000/uL (130-400); RED BLOOD CELL COUNT 2.62 mill/uL (4.2-5.4); RED CELL DISTRIBUTION WIDTH 15.8 % (11.6-14.6)
[2017-08-03 06:40] LABS: HEMATOCRIT. 21.4 % (36.0-48.0)
[2017-08-03 07:50] LABS: CARBON DIOXIDE 23 mEq/L (21-32); CHLORIDE 109 mEq/L (98-107); PHOSPHORUS 2.6 mg/dL (2.5-4.9)
[2017-08-03] MEDS: ASPIRIN 81MG EC TABLET PO SCH (10:00)
[2017-08-03] MEDS: ISOSORBIDE MONONITRATE 30MG TABLET SR 24HR PO SCH ×2 (10:01→21:04)
[2017-08-03] MEDS: AMLODIPINE 2.5MG TABLET PO SCH (10:01)
[2017-08-03] MEDS: FERROUS SULFATE 325MG TABLET PO SCH ×3 (10:02→18:44)
[2017-08-03] MEDS: METOPROLOL TARTRATE 25MG TABLET PO SCH ×2 (10:02→21:04)
[2017-08-03] MEDS: CEFEPIME 1,000 MG in DEXTROSE 5% WATER 50 ML IV SCH (10:03)
[2017-08-03] MEDS: CITRIC ACID/SODIUM CITRATE SOLN 30ML UDC PO SCH ×3 (10:03→18:45)
[2017-08-03] MEDS: FLUCONAZOLE 100 MG/50ML BAG 50 ML IV SCH (11:21)
[2017-08-03] MEDS: INSULIN LISPRO 100 UNITS/ML SUBCUT SCH ×4 (11:23→21:04)
[2017-08-03] MEDS ORDERED: TRAMADOL 50MG TABLET PO PRN (13:30)
[2017-08-03] MEDS: AMLODIPINE 5MG TABLET PO SCH (21:03)
[2017-08-03] MEDS: ATORVASTATIN CALCIUM 10MG TABLET PO SCH (21:03)
[2017-08-04] VITALS: BP 137/92
[2017-08-04 04:00] VITALS: BP 143/93
[2017-08-04] MEDS: BLOOD SUGAR DIAGNOSTIC STRIP TEST SCH ×4 (05:31→21:47)
[2017-08-04 06:07] LABS: BASOPHILS % 0.2 % (0.0-2.0); EOSINOPHILS % 0.3 % (0.0-5.0); HEMATOCRIT. 25.5 % (36.0-48.0); HEMOGLOBIN. 8.3 g/dL (12.0-16.0); LYMPHOCYTES % 8.2 % (20.0-50.0); MEAN PLATELET VOLUME 7.7 fl (7.4-10.4); MONOCYTES % 6.5 % (2.0-8.0); NEUTROPHILS % 84.8 % (40.0-76.0); PLATELET 231 x1000/uL (130-400); RED BLOOD CELL COUNT 3.07 mill/uL (4.2-5.4); RED CELL DISTRIBUTION WIDTH 15.5 % (11.6-14.6)
[2017-08-04 06:39] LABS: PREALBUMIN 9.2 mg/dL (20.0-40.0)
[2017-08-04] MEDS: INSULIN LISPRO 100 UNITS/ML SUBCUT SCH ×4 (07:29→21:00)
[2017-08-04 08:00] VITALS: BP 143/97
[2017-08-04] MEDS: ASPIRIN 81MG EC TABLET PO SCH (09:30)
[2017-08-04] MEDS: CITRIC ACID/SODIUM CITRATE SOLN 30ML UDC PO SCH ×4 (09:30→21:46)
[2017-08-04] MEDS: FLUCONAZOLE 100 MG/50ML BAG 50 ML IV SCH (09:30)
[2017-08-04] MEDS: METOPROLOL TARTRATE 25MG TABLET PO SCH ×2 (09:31→21:47)
[2017-08-04] MEDS: FERROUS SULFATE 325MG TABLET PO SCH ×3 (09:31→17:52)
[2017-08-04] MEDS: ISOSORBIDE MONONITRATE 30MG TABLET SR 24HR PO SCH ×2 (09:31→21:47)
[2017-08-04] MEDS: AMLODIPINE 5MG TABLET PO SCH ×2 (09:31→21:46)
[2017-08-04] MEDS ORDERED: MAGNESIUM 1 G PREMIX 100 ML IV SCH (11:00)
[2017-08-04 12:00] VITALS: BP 136/96
[2017-08-04 16:00] VITALS: BP 130/81
[2017-08-04 20:14] VITALS: BP 151/99
[2017-08-04] MEDS: ATORVASTATIN CALCIUM 10MG TABLET PO SCH (21:47)
[2017-08-05 00:01] VITALS: BP 153/98
[2017-08-05 06:26] LABS: BASOPHILS % 0.2 % (0.0-2.0); EOSINOPHILS % 0.2 % (0.0-5.0); HEMATOCRIT. 25.2 % (36.0-48.0); HEMOGLOBIN. 8.4 g/dL (12.0-16.0); LYMPHOCYTES % 12.3 % (20.0-50.0); MEAN CORPUSCULAR HEMOGLOBIN 27.8 pg (28.0-32.0); MEAN CORPUSCULAR VOLUME 83.2 fL (81.0-99.0); MEAN PLATELET VOLUME 7.7 fl (7.4-10.4); MONOCYTES % 9.4 % (2.0-8.0); NEUTROPHILS % 77.9 % (40.0-76.0); PLATELET 226 x1000/uL (130-400); RED BLOOD CELL COUNT 3.03 mill/uL (4.2-5.4); RED CELL DISTRIBUTION WIDTH 15.7 % (11.6-14.6)
[2017-08-05] MEDS: BLOOD SUGAR DIAGNOSTIC STRIP TEST SCH ×4 (07:40→20:38)
[2017-08-05 08:00] VITALS: BP_SYST 135; BP_SYST 136; BP_DIAS 100; BP_DIAS 89
[2017-08-05 08:06] LABS: PHOSPHORUS 1.5 mg/dL (2.5-4.9)
[2017-08-05] MEDS: INSULIN LISPRO 100 UNITS/ML SUBCUT SCH ×4 (08:10→20:38)
[2017-08-05] MEDS: ISOSORBIDE MONONITRATE 30MG TABLET SR 24HR PO SCH ×2 (08:15→20:38)
[2017-08-05] MEDS: CITRIC ACID/SODIUM CITRATE SOLN 30ML UDC PO SCH ×5 (08:15→20:37)
[2017-08-05] MEDS: METOPROLOL TARTRATE 25MG TABLET PO SCH ×2 (08:15→20:38)
[2017-08-05] MEDS: FLUCONAZOLE 100 MG/50ML BAG 50 ML IV SCH (08:15)
[2017-08-05] MEDS: FERROUS SULFATE 325MG TABLET PO SCH ×3 (08:16→18:34)
[2017-08-05] MEDS: AMLODIPINE 5MG TABLET PO SCH ×2 (08:16→20:38)
[2017-08-05] MEDS: ASPIRIN 81MG EC TABLET PO SCH (08:16)
[2017-08-05 12:00] VITALS: BP 136/85
[2017-08-05 12:04] LABS: BG CARBOXYHEMOGLOBIN 0.8 % (0.5-1.5); BG DEOXYHEMOGLOBIN 8.8 % (0.0-5.0); BG FRACTION INSPIRED OXYGEN 21; BG HCO3 ACT 25.5 mmol/L (22.0-26.0); BG METHEMOGLOBIN 0.2 % (0.0-1.5); BG OXYGEN SATURATION 91.1 % (92.0-98.5); BG OXYHEMOGLOBIN 90.2 % (94.0-97.0); BG PCO2 35.7 mmHg (35.0-45.0); BG PH 7.472 (7.350-7.450); BG PO2 60.5 mmHg (75.0-100.0); BG SAMPLE SITE RIGHT RADIAL; BG TOTAL HEMOGLOBIN 10.1 g/dL (12.0-18.0); BG VENT MODE ROOM AIR
[2017-08-05 13:00] VITALS: BP 144/93
[2017-08-05 16:00] VITALS: BP 144/93
[2017-08-05 20:00] VITALS: BP 157/103
[2017-08-05] MEDS: ATORVASTATIN CALCIUM 10MG TABLET PO SCH (20:37)
[2017-08-06] VITALS (7 sets, daily range): BP systolic 135–155; BP diastolic 83–108
[2017-08-06] MEDS: BLOOD SUGAR DIAGNOSTIC STRIP TEST SCH ×4 (06:56→21:28)
[2017-08-06 07:00] LABS: HEMATOCRIT. 24.8 % (36.0-48.0); HEMOGLOBIN. 8.1 g/dL (12.0-16.0); MEAN CORPUSCULAR HEMOGLOBIN 27.6 pg (28.0-32.0); MEAN CORPUSCULAR VOLUME 84.3 fL (81.0-99.0); MEAN PLATELET VOLUME 8.1 fl (7.4-10.4); PLATELET 209 x1000/uL (130-400); RED BLOOD CELL COUNT 2.94 mill/uL (4.2-5.4); RED CELL DISTRIBUTION WIDTH 16.2 % (11.6-14.6)
[2017-08-06] MEDS: INSULIN LISPRO 100 UNITS/ML SUBCUT SCH ×4 (08:10→21:00)
[2017-08-06 08:34] LABS: PHOSPHORUS 1.3 mg/dL (2.5-4.9)
[2017-08-06] MEDS: METOPROLOL TARTRATE 25MG TABLET PO SCH ×2 (08:56→21:28)
[2017-08-06] MEDS: ASPIRIN 81MG EC TABLET PO SCH (08:56)
[2017-08-06] MEDS: AMLODIPINE 5MG TABLET PO SCH ×2 (08:56→21:28)
[2017-08-06] MEDS: FERROUS SULFATE 325MG TABLET PO SCH ×3 (08:56→16:39)
[2017-08-06] MEDS: FLUCONAZOLE 100 MG/50ML BAG 50 ML IV SCH (09:03)
[2017-08-06] MEDS: CITRIC ACID/SODIUM CITRATE SOLN 30ML UDC PO SCH ×4 (09:07→21:29)
[2017-08-06] MEDS: ISOSORBIDE MONONITRATE 30MG TABLET SR 24HR PO SCH ×2 (09:07→21:28)
[2017-08-06] MEDS: POTASSIUM-SODIUM PHOSPHATE POWDER PACKET PO SCH ×2 (09:08→16:39)
[2017-08-06 16:07] LABS: PLATELET ESTIMATE NORMAL
[2017-08-06] MEDS: ATORVASTATIN CALCIUM 10MG TABLET PO SCH (21:27)
[2017-08-07] VITALS: BP 138/70
[2017-08-07 04:00] VITALS: BP 141/87
[2017-08-07] MEDS: BLOOD SUGAR DIAGNOSTIC STRIP TEST SCH ×2 (06:40→12:40)
[2017-08-07 08:00] VITALS: BP_SYST 160; BP_SYST 169; BP_DIAS 106; BP_DIAS 96
[2017-08-07] MEDS: INSULIN LISPRO 100 UNITS/ML SUBCUT SCH ×2 (08:10→13:20)
[2017-08-07] MEDS: POTASSIUM-SODIUM PHOSPHATE POWDER PACKET PO SCH (08:14)
[2017-08-07] MEDS: FERROUS SULFATE 325MG TABLET PO SCH ×2 (08:15→13:20)
[2017-08-07] MEDS: ASPIRIN 81MG EC TABLET PO SCH (08:16)
[2017-08-07] MEDS: AMLODIPINE 5MG TABLET PO SCH (08:16)
[2017-08-07] MEDS: METOPROLOL TARTRATE 25MG TABLET PO SCH (08:16)
[2017-08-07] MEDS: FLUCONAZOLE 100 MG/50ML BAG 50 ML IV SCH (08:17)
[2017-08-07] MEDS: CITRIC ACID/SODIUM CITRATE SOLN 30ML UDC PO SCH ×2 (08:17→13:20)
[2017-08-07] MEDS: ISOSORBIDE MONONITRATE 30MG TABLET SR 24HR PO SCH (08:17)
[2017-08-07 09:41] LABS: HEMATOCRIT. 25.5 % (36.0-48.0); HEMOGLOBIN. 8.3 g/dL (12.0-16.0); MEAN CORPUSCULAR HEMOGLOBIN 27.6 pg (28.0-32.0); MEAN CORPUSCULAR VOLUME 84.8 fL (81.0-99.0); PLATELET 214 x1000/uL (130-400); RED CELL DISTRIBUTION WIDTH 16.4 % (11.6-14.6)
[2017-08-07 09:59] LABS: PHOSPHORUS 1.8 mg/dL (2.5-4.9); PREALBUMIN 14.2 mg/dL (20.0-40.0)
[2017-08-07 12:00] VITALS: BP 146/87
[2017-08-07 15:57] VITALS: BP 146/87
[2017-08-07 20:15] LABS: PLATELET ESTIMATE NORMAL
== END 2017-08-07 16:15 | disposition home health service (06) | DRG 871 ==
LOC: ER 07:46 → 7WST 11:01 → EDBEDREQ 11:04 → ENRESERV 11:36
PROVIDERS: ADMIT Internal Medicine; ATTEND Internal Medicine
PROC: 4A00X4Z Measurement of Central Nervous Electrical Activity, External Approach (ICD-10-PCS; principal; 2017-07-30)
PROC: 30233N1 Transfusion of Nonautologous Red Blood Cells into Peripheral Vein, Percutaneous Approach (ICD-10-PCS; 2017-08-03)
DX: A41.9 Sepsis, unspecified organism (principal); G92 Toxic encephalopathy; I63.9 Cerebral infarction, unspecified; E43 Unspecified severe protein-calorie malnutrition; N18.4 Chronic kidney disease, stage 4 (severe); D68.9 Coagulation defect, unspecified; N17.9 Acute kidney failure, unspecified; E11.22 Type 2 diabetes mellitus with diabetic chronic kidney disease; F03.90 Unspecified dementia, unspecified severity, without behavioral disturbance, psychotic disturbance, mood disturbance, and anxiety; I13.0 Hypertensive heart and chronic kidney disease with heart failure and stage 1 through stage 4 chronic kidney disease, or unspecified chronic kidney disease; B37.49 Other urogenital candidiasis; Z68.1 Body mass index [BMI] 19.9 or less, adult; W06.XXXA Fall from bed, initial encounter; E83.51 Hypocalcemia; E83.39 Other disorders of phosphorus metabolism; I50.9 Heart failure, unspecified; D50.9 Iron deficiency anemia, unspecified; I27.2 Other secondary pulmonary hypertension; R29.6 Repeated falls; R62.7 Adult failure to thrive; Y92.009 Unspecified place in unspecified non-institutional (private) residence as the place of occurrence of the external cause; Z74.01 Bed confinement status; Z79.82 Long term (current) use of aspirin; Z79.84 Long term (current) use of oral hypoglycemic drugs; Z82.49 Family history of ischemic heart disease and other diseases of the circulatory system; Z86.711 Personal history of pulmonary embolism; Z86.718 Personal history of other venous thrombosis and embolism; Z86.73 Personal history of transient ischemic attack (TIA), and cerebral infarction without residual deficits; Y93.89 Activity, other specified; Y99.8 Other external cause status
CPT/HCPCS: 36415; 36600; 51702; 70450; 70551; 71010; 71250; 74176; 76770; 78580; 80048; 80053; 80061; 80305; 80307; 80329; 81001; 82040; 82140; 82270; 82306; 82330; 82375; 82570; 82607; 82728; 82746; 82805; 82962; 83010; 83036; 83540; 83550; 83605; 83615; 83735; 83880; 83970; 84100; 84134; 84155; 84156; 84165; 84166; 84439; 84443; 84481; 84484; 85025; 85044; 85379; 85610; 86850; 86900; 86920; 87040; 87086; 87106; 93005; 93306; 93970; 96360; 97112; 97162; 97164; 97166; 97530; 99285; G0482; J0692; J0696; J1200; J1450; J1815; J3475; J3490; J7030; J7050; J7060; J7620; P9016; A4315